=== PATIENT | male | born 1990 | race Caucasian/White ===

== ENCOUNTER 2023-01-16 13:46 | Emergency (ER) | payer OTHER, SELFPAY ==
--- NOTE | ~2023-01-16 | CT_ITS ---
EXAMINATION: CT FACIAL BONES WITHOUT CONTRAST CLINICAL INFORMATION: Status post fall with right eyebrow laceration, rule out facial bone abnormality. COMPARISON: None TECHNIQUE: Multiple axial images of the facial bones were obtained without the administration of intravenous contrast. Coronal and sagittal reformatted images were obtained. This CT examination was performed using dose optimization techniques as appropriate, variously including the following: *Automated exposure control *Adjustment of mA and/or kV according to patient size (this includes techniques or standardized protocols for targeted exams where dose is matched to indication/reason for exam; i.e. extremities or head) *Use of iterative reconstruction technique DLP: 291 mGy-cm FINDINGS: There is acute, comminuted depressed fracture involving the anterolateral cortical margin of the right frontal bone (image 195, series 2) extending posterior to the posterior cortical margin and inferior to the superior rim of the right orbits. Subjacent mild to moderate mucosal thickening and moderate air-fluid level are seen in the right maxillary sinus with extension inferiorly to the right anterior ethmoid air cells. The remainder of the ethmoid air cells as well as the sphenoid sinuses are clear. Minimal mucosal thickening is seen in the maxillary sinuses bilaterally without air-fluid levels. The right orbital contents are intact without abnormality. The right axilla, nasal bones and zygomatic arch are intact. No left facial bone fracture. The mandible and temporomandibular joints as well as the pterygoid plates are intact. The cervical spine shows mild degenerative disc disease at C5-6 with disc space narrowing and marginal osteophyte odontoid process is intact. The soft tissues show mild asymmetric swelling in the right cheek and periorbital region. CT/CT facial bones wo IV con IMPRESSION: 1. Acute, comminuted, depressed fracture involving the anterolateral cortical margin of the right frontal bone extending inferiorly to the superior orbital rim. Subjacent mild to moderate mucosal thickening and air-fluid level in the right maxillary sinus with extension inferiorly to the right anterior ethmoid air cells. No other acute osseous abnormality. 2. Mild asymmetric soft tissue swelling in the right cheek and periorbital region without underlying abnormality. 3. Mild C5-6 degenerative disc disease.
--- NOTE | ~2023-01-16 | CT_ITS ---
EXAMINATION: CT HEAD WITHOUT CONTRAST CLINICAL INFORMATION: Facial fracture. Pain. COMPARISON: None. TECHNIQUE: Contiguous axial imaging was performed from the skull base to vertex without intravenous administration of contrast. Coronal and sagittal reformatted images are performed at the CT scanner. [This CT examination was performed using dose optimization techniques as appropriate, variously including the following: *Automated exposure control *Adjustment of mA and/or kV according to patient size (this includes techniques or standardized protocols for targeted exams where dose is matched to indication/reason for exam; i.e. extremities or head) *Use of iterative reconstruction technique] DLP: 521 mGy-cm. FINDINGS: There is no evidence of acute intracranial hemorrhage or acute territorial infarction. No abnormal mass-effect or midline shift is seen. Dior to white matter differentiation is well preserved. No extra-axial fluid collections are identified. The ventricles are normal in size. There is no abnormal attenuation within the brain parenchyma. Redemonstration of the acute comminuted mildly displaced fracture of the right frontal bone involving the frontal sinus. Hemorrhagic fluid in the frontal sinus redemonstrated. The mastoid air cells and middle ear cavities are normally aerated. CT/CT head/brain wo IV con IMPRESSION: 1. No acute intracranial pathology. 2. Redemonstration of the acute comminuted mildly displaced fracture of the right frontal bone involving the frontal sinus.
[2023-01-16 14:15] VITALS: BP 110/73; PULSE 89; RESP 18; TEMP 36.8; O2SAT 97; BMI 23.0
--- NOTE | 2023-01-16 14:16 | ED.WOUNDLAC ---
HPI - Wound/Laceration General Chief Complaint: Wound/Laceration <GRECIA Dempsey Last Filed: 01/16/23 14:19> Stated Complaint: R eyebrow laceration <GRECIA Dempsey Last Filed: 01/16/23 14:19> Time Seen by Provider: 01/16/23 15:06 <GRECIA Dempsey Last Filed: 01/16/23 14:19> Source: patient <GRECIA Conklin Last Filed: 01/17/23 12:02> Mode of arrival: ambulatory <GRECIA Conklin Last Filed: 01/17/23 12:02> Limitations: no limitations <GRECIA Conklin Last Filed: 01/17/23 12:02> History of Present Illness HPI narrative: Patient is a 32 year old assigned male at with no reported medical history presenting to the emergency department today after a fall up stairs. Patient states that at 0100 this morning, after drinking some alcohol, he tripped up some stairs and hit the right side of his face against the stairs. Patient states that he did not have any loss of consciousness and instead he finished going up the stairs and took a nap. Patient states that he does not know when his last tetanus shot was. Patient denies any dizziness, lightheadedness, abdominal pain, nausea, vomiting, fever, chills, blurry vision, double vision, loss of vision, chest pain, difficulty breathing, shortness of breath, back pain, night sweats, pain with urination, increased urinary frequency, increased urinary urgency, blood in his urine or stool, syncope or a near syncopal episode, bowel incontinence, bladder incontinence, bowel retention, bladder retention, or any other complaints at this time. <GRECIA Conklin Last Filed: 01/17/23 12:02> Onset (ago): hour(s) (10) <GRECIA Conklin Last Filed: 01/17/23 12:02> Location: face <GRECIA Conklin Last Filed: 01/17/23 12:02> Related Data Allergies/Adverse Reactions: Allergies Allergy/AdvReac Type Severity Reaction Status Date / Time No Known Allergies Allergy Unverified 07/26/20 17:44 <GRECIA Dempsey Last Filed: 01/16/23 14:19> Review of Systems Constitutional: Constitutional: Reports no additional constitutional complaints, Denies chills, Denies fever(s) and Denies night sweats <GRECIA Conklin - Last Filed: 01/17/23 12:02> Eyes: Eyes: Reports no additional eye complaints, Denies blurry vision, Denies change in vision, Denies diplopia, Denies eye discharge, Denies loss of vision and Denies eye pain <GRECIA Conklin - Last Filed: 01/17/23 12:02> Comments: right eyebrow injury <GRECIA Conklin - Last Filed: 01/17/23 12:02> ENT: Denies dizziness <GRECIA Conklin - Last Filed: 01/17/23 12:02> Cardiovascular: Cardiovascular: Reports no additional cardiovascular complaints, Denies chest pain, Denies lightheadedness, Denies Loss of Consciousness and Denies dyspnea <GRECIA Conklin - Last Filed: 01/17/23 12:02> Respiratory: Respiratory: Reports no additional respiratory complaints and Denies dyspnea <GRECIA Conklin - Last Filed: 01/17/23 12:02> Gastrointestinal: Gastrointestinal: Reports no additional gastrointestinal complaints, Denies abdominal pain, Denies melena, Denies hematochezia, Denies change in bowel habits and Denies change in stool character <GRECIA Conklin - Last Filed: 01/17/23 12:02> Genitourinary: Genitourinary: Reports no additional male genitourinary complaints, Denies hematuria, Denies oliguria, Denies difficulty urinating, Denies dysuria, Denies urinary frequency, Denies urinary hesitancy, Denies urinary incontinence and Denies urinary urgency <GRECIA Conklin - Last Filed: 01/17/23 12:02> Musculoskeletal: Musculoskeletal: Reports no additional musculoskeletal complaints, Denies numbness and Denies tingling <GRECIA Conklin - Last Filed: 01/17/23 12:02> Neurologic: Denies dizziness, Denies loss of vision, Denies numbness and Denies tingling <GRECIA Conklin - Last Filed: 01/17/23 12:02> Psychiatric: Psychiatric: Reports no additional psychiatric complaints <GRECIA Conklin - Last Filed: 01/17/23 12:02> Endocrine: Endocrine: Reports no additional endocrine complaints <GRECIA Conklin - Last Filed: 01/17/23 12:02> Hematologic/Lymphatic: Hematologic/Lymphatic: Reports no additional hematologic/lymphatic complaints <GRECIA Conklin - Last Filed: 01/17/23 12:02> Allergic/Immunologic: Allergic/Immunologic: Reports no additional allergic/immunologic complaints <GRECIA Conklin - Last Filed: 01/17/23 12:02> [facility] Past Medical History Attestation statement: The following information was validated with the patient. <GRECIA Conklin - Last Filed: 01/17/23 12:02> Source: old records reviewed and nursing notes reviewed <GRECIA Conklin - Last Filed: 01/17/23 12:02> Social History Social History: Social History Advance Directives: No Advance Directives Information Provided: No <GRECIA Dempsey - Last Filed: 01/16/23 14:19> Physical Exam Vital Signs: Vital Signs: Last Vital Signs Temp 98.3 F 01/16/23 14:15 Pulse 89 01/16/23 14:15 Resp 18 01/16/23 14:15 BP 110/73 01/16/23 14:15 Pulse Ox 97 01/16/23 14:15 O2 Del Method 01/16/23 14:15 BMI result Body Mass Index 23.0 <GRECIA Dempsey - Last Filed: 01/16/23 14:19> Vital Signs: Last Vital Signs Temp 98.3 F 01/16/23 14:15 Pulse 89 01/16/23 14:15 Resp 18 01/16/23 14:15 BP 110/73 01/16/23 14:15 Pulse Ox 97 01/16/23 14:15 O2 Del Method 01/16/23 14:15 BMI result Body Mass Index 23.0 <GRECIA Conklin - Last Filed: 01/17/23 12:02> Const: General: cooperative, no acute distress, alert and awake <GRECIA Conklin - Last Filed: 01/17/23 12:02> Nutritional Appearance: well nourished <Maricel Newmancandie [place] - Last Filed: 01/17/23 12:02> Orientation/consciousness: patient oriented x3 <Maricel Matthew [place] - Last Filed: 01/17/23 12:02> Limitations: no limitations <Mariceljunior Newmancandie [place] - Last Filed: 01/17/23 12:02> HEENT: Other: right eyebrow laceration in U shape measuring approximately 6cm <Maricel Castro [place] - Last Filed: 01/17/23 12:02> Ears: hearing grossly normal bilaterally and external ears normal <Maricel Matthew [place] - Last Filed: 01/17/23 12:02> General nose exam: Normal external nose present, no nasal discharge noted and no epistaxis <Maricel Matthew [place] - Last Filed: 01/17/23 12:02> Face and sinus: Yes normal facial exam, No abrasion and No laceration <Maricel Castro [place] - Last Filed: 01/17/23 12:02> Mouth: Normal oral and palatal mucosa present, no drooling and no muffled voice <Maricel Matthew [place] - Last Filed: 01/17/23 12:02> Eyes: Eyelids: Yes eyelids normal <Maricel Matthew [place] - Last Filed: 01/17/23 12:02> Conjunctivae: conjunctivae normal <Maricel Newmancandie [place] - Last Filed: 01/17/23 12:02> Pupils: Equal, round and reactive pupils present <Maricel Castro [place] - Last Filed: 01/17/23 12:02> EOM: EOMs intact bilaterally <Maricel Castro [place] - Last Filed: 01/17/23 12:02> Neck: Neck: Yes normal visual inspection, Yes full ROM and Yes no lymphadenopathy <Maricel Castro [place] - Last Filed: 01/17/23 12:02> Chest: Chest palpation & inspection: normal inspection of the chest <Maricel Castro [place] - Last Filed: 01/17/23 12:02> Resp: Effort & Inspection: normal respiratory effort and able to speak in complete sentences <Maricel Castro [place] - Last Filed: 01/17/23 12:02> Auscultation: clear to auscultation bilaterally <Maricel Castro PA - Last Filed: 01/17/23 12:02> Cardio: Rate: regular rate <Maricel Castro PA - Last Filed: 01/17/23 12:02> Rhythm: regular rhythm <Maricel Castro PA - Last Filed: 01/17/23 12:02> GI: Inspection: Yes normal to inspection <Maricel Castro PA - Last Filed: 01/17/23 12:02> Palpation (GI): Soft to palpation, not firm, nontender, no guarding and not rigid <Maricel Castro PA - Last Filed: 01/17/23 12:02> Neuro: General: patient oriented x3 and moves all extremities <Maricel Castro PA - Last Filed: 01/17/23 12:02> Cranial nerves: Yes Equal, round and reactive pupils present <Maricel Castro PA - Last Filed: 01/17/23 12:02> Cognition (Neuro): normal cognition <Maricel Castro PA - Last Filed: 01/17/23 12:02> Motor exam (neuro): 5/5 motor strength present throughout <Maricel Castro PA - Last Filed: 01/17/23 12:02> Sensory Exam: Normal double simultaneous stimulation for sensation <Maricel Castro PA - Last Filed: 01/17/23 12:02> Coordination: [id number] test normal <Maricel Castro PA - Last Filed: 01/17/23 12:02> Extrem: General: Yes normal to inspection, Yes full ROM and Yes capillary refill normal <Maricel Castro PA - Last Filed: 01/17/23 12:02> Psych: Appearance: grossly normal <Maricel Castro PA - Last Filed: 01/17/23 12:02> Mental Status: mental status grossly normal <Maricel Castro PA - Last Filed: 01/17/23 12:02> Affect: normal affect <Maricel Castro PA - Last Filed: 01/17/23 12:02> Attitude: cooperative <Maricel Castro PA - Last Filed: 01/17/23 12:02> Thought process: Normal thought process present <MaricelGRECIA Power - Last Filed: 01/17/23 12:02> Thought content: Normal thought content present <GRECIA Conklin - Last Filed: 01/17/23 12:02> Insight: Good insight present (Psych) <GRECIA Conklin - Last Filed: 01/17/23 12:02> Course Course Course Narrative: RME - 32 year old male presenting today with complaints or right eyebrow laceration which occurred last night at midnight when he was drunk. Patient states that he accidentally missed a step at his house and fell forward, striking his forehead, lacerating his right eyebrow. He denies loss of consciousness. Admits to having a headache. Will get tetanus vaccination today. Deep irregular laceration right over the eyebrow. Plan - Will need sutures for closure. CT facial bone ordered. <GRECIA Dempsey - Last Filed: 01/16/23 14:19> Medications Administered Discontinued Medications Generic Name Dose Route Start Last Admin Trade Name Freq PRN Reason Stop Dose Admin Diphtheria/Tetanus/Acell Pertussis 0.5 ml 01/16/23 15:21 01/16/23 15:34 Diphth,Pertus(Acell),Tet Adult 0.5 Ml Syringe IM 01/16/23 15:22 0.5 ml .ONCE ONE Administration Piperacillin Sod/Tazobactam 50 mls @ 100 mls/hr 01/16/23 15:28 01/16/23 15:43 Sod 3.375 gm/ Sodium Chloride IV 01/16/23 15:57 100 mls/hr ONCE ONE Administration <GRECIA Dempsey - Last Filed: 01/16/23 14:19> Medications Administered Discontinued Medications Generic Name Dose Route Start Last Admin Trade Name Freq PRN Reason Stop Dose Admin Diphtheria/Tetanus/Acell Pertussis 0.5 ml 01/16/23 15:21 01/16/23 15:34 Diphth,Pertus(Acell),Tet Adult 0.5 Ml Syringe IM 01/16/23 15:22 0.5 ml .ONCE ONE Administration Piperacillin Sod/Tazobactam 50 mls @ 100 mls/hr 01/16/23 15:28 01/16/23 15:43 Sod 3.375 gm/ Sodium Chloride IV 01/16/23 15:57 100 mls/hr ONCE ONE Administration <GRECIA Conklin - Last Filed: 01/17/23 12:02> Medical Decision Making Medical Decision Making [facility] Narrative: Patient is a 32 year old assigned male at with no reported medical history presenting to the emergency department today with a right eyebrow injury. Patient's physical exam showed a large U shaped right eyebrow injury measuring approximately 6 cm. Patient's blood work showed an elevated WBC count of 12.2 but was otherwise unremarkable. Patient's facial and head CT showed an acute, comminuted, depressed fracture involving the anterolateral cortical margin of the right frontal bone extending inferiorly to the superior orbital rim. I spoke to [facility] trauma surgeon Dr. Elizabeth who agreed to accept the transfer of the patient for a trauma consult to the [facility] ER. I explained my physical exam findings as well as all test results to the patient. I answered all questions asked by the patient. Patient was brought up to date on tetanus and given an IV dose of Zosyn given his open fracture. Patient verbalized agreement and understanding with this treatment plan and transfer. <GRECIA Conklin - Last Filed: 01/17/23 12:02> Differential Diagnosis Differential Diagnoses: The differential diagnosis associated with the presentation includes <GRECIA Conklin - Last Filed: 01/17/23 12:02> skull fracture, facial fracture, orbital roof fracture <GRECIA Conklin - Last Filed: 01/17/23 12:02> Consult Healthcare Provider Management of the patient was discussed with: [employer] ([facility] trauma surgeon Dr. Elizabeth who agreed to accept the transfer of the patient for a trauma consult to the [facility] ER) <GRECIA Conklin - Last Filed: 01/17/23 12:02> Lab Data [facility] Lab Attestation statement: I reviewed the patient's lab results. <GRECAI Conklin - Last Filed: 01/17/23 12:02> Result Diagrams: 01/16/23 16:39 01/16/23 16:39 <GRECIA Dempsey - Last Filed: 01/16/23 14:19> Labs: Lab Results 01/16/23 01/16/23 01/16/23 Range/Units 16:39 16:39 16:39 WBC 12.2 H (4.8-10.8) X10*3/uL RBC 4.77 (4.60-5.80) X10*6/uL Hgb 15.8 (14.0-18.0) g/dl Hct 45.4 (42.0-52.0) % MCV 95.2 (80.0-98.0) fL MCH 33.1 H (27.0-33.0) pg MCHC 34.8 (31.0-36.0) g/dl RDW 11.7 (11.0-16.0) % Plt Count 312 (160-400) X10*3/uL MPV 8.5 L (9.4-12.4) fL Immature Gran % (Auto) 0.6 H (0.0-0.4) % Neut % (Auto) 80.8 H (45-73) % Lymph % (Auto) 11.4 L (20-40) % [place] % (Auto) 6.6 (2-11) % Eos % (Auto) 0.2 (0-4) % Baso % (Auto) 0.4 (0-2) % Lymph # (Auto) 1.4 (1.2-4.9) X10*3/uL [place] # (Auto) 0.8 (0.1-1.2) X10*3/uL Eos # (Auto) 0.0 (0.0-0.4) X10*3/uL Baso # (Auto) 0.1 (0.0-0.2) X10*3/uL Abs Immat Gran (auto) 0.07 H (0.00-0.03) X10*3/uL Absolute Neuts (auto) 9.9 H (2.0-8.3) x10*3/uL Absolute Nucleated RBC 0.000 (0.0-0.012) X10*3/uL Nucleated RBC % (auto) 0.0 (0.0-0.2) /100WBC PT 12.3 (10.0-13.1) SEC INR 1.1 (0.9-1.1) APTT 31.7 (26.0-36.4) SEC Sodium 145 (135-145) mmol/L Potassium 3.9 (3.3-5.1) mmol/L Chloride 108 (96-108) mmol/L Carbon Dioxide 27 (22-29) mmol/L Anion Gap 14 (12-20) BUN 5 L (9-16) mg/dL Creatinine 0.89 (0.5-1.4) mg/dL Estim Creat Clear Calc 127.3 Estimated GFR > 60 Random Glucose 80 (60-115) mg/dL Calcium 9.0 (8.4-10.2) mg/dL Total Bilirubin 0.6 (0.0-1.0) mg/dL AST 17 (5-37) U/L ALT 21 (0-40) U/L Alkaline Phosphatase 87 (39-117) U/L Total Protein 6.8 (6.5-8.0) g/dL Albumin 4.6 (3.5-5.0) g/dL COVID-19 (CECIL) (Negative) COVID-19 Clin Com 01/16/23 Range/Units 16:39 WBC (4.8-10.8) X10*3/uL RBC (4.60-5.80) X10*6/uL Hgb (14.0-18.0) g/dl Hct (42.0-52.0) % MCV (80.0-98.0) fL MCH (27.0-33.0) pg MCHC (31.0-36.0) g/dl RDW (11.0-16.0) % Plt Count (160-400) X10*3/uL MPV (9.4-12.4) fL Immature Gran % (Auto) (0.0-0.4) % Neut % (Auto) (45-73) % Lymph % (Auto) (20-40) % [place] % (Auto) (2-11) % Eos % (Auto) (0-4) % Baso % (Auto) (0-2) % Lymph # (Auto) (1.2-4.9) X10*3/uL [place] # (Auto) (0.1-1.2) X10*3/uL Eos # (Auto) (0.0-0.4) X10*3/uL Baso # (Auto) (0.0-0.2) X10*3/uL Abs Immat Gran (auto) (0.00-0.03) X10*3/uL Absolute Neuts (auto) (2.0-8.3) x10*3/uL Absolute Nucleated RBC (0.0-0.012) X10*3/uL Nucleated RBC % (auto) (0.0-0.2) /100WBC PT (10.0-13.1) SEC INR (0.9-1.1) APTT (26.0-36.4) SEC Sodium (135-145) mmol/L Potassium (3.3-5.1) mmol/L Chloride (96-108) mmol/L Carbon Dioxide (22-29) mmol/L Anion Gap (12-20) BUN (9-16) mg/dL Creatinine (0.5-1.4) mg/dL Estim Creat Clear Calc Estimated GFR Random Glucose (60-115) mg/dL Calcium (8.4-10.2) mg/dL Total Bilirubin (0.0-1.0) mg/dL AST (5-37) U/L ALT (0-40) U/L Alkaline Phosphatase (39-117) U/L Total Protein (6.5-8.0) g/dL Albumin (3.5-5.0) g/dL COVID-19 (CECIL) Negative (Negative) COVID-19 Clin Com See Note <GRECIA Dempsey - Last Filed: 01/16/23 14:19> Lab Results 01/16/23 01/16/23 01/16/23 Range/Units 16:39 16:39 16:39 WBC 12.2 H (4.8-10.8) X10*3/uL RBC 4.77 (4.60-5.80) X10*6/uL Hgb 15.8 (14.0-18.0) g/dl Hct 45.4 (42.0-52.0) % MCV 95.2 (80.0-98.0) fL MCH 33.1 H (27.0-33.0) pg MCHC 34.8 (31.0-36.0) g/dl RDW 11.7 (11.0-16.0) % Plt Count 312 (160-400) X10*3/uL MPV 8.5 L (9.4-12.4) fL Immature Gran % (Auto) 0.6 H (0.0-0.4) % Neut % (Auto) 80.8 H (45-73) % Lymph % (Auto) 11.4 L (20-40) % [place] % (Auto) 6.6 (2-11) % Eos % (Auto) 0.2 (0-4) % Baso % (Auto) 0.4 (0-2) % Lymph # (Auto) 1.4 (1.2-4.9) X10*3/uL [place] # (Auto) 0.8 (0.1-1.2) X10*3/uL Eos # (Auto) 0.0 (0.0-0.4) X10*3/uL Baso # (Auto) 0.1 (0.0-0.2) X10*3/uL Abs Immat Gran (auto) 0.07 H (0.00-0.03) X10*3/uL Absolute Neuts (auto) 9.9 H (2.0-8.3) x10*3/uL Absolute Nucleated RBC 0.000 (0.0-0.012) X10*3/uL Nucleated RBC % (auto) 0.0 (0.0-0.2) /100WBC PT 12.3 (10.0-13.1) SEC INR 1.1 (0.9-1.1) APTT 31.7 (26.0-36.4) SEC Sodium 145 (135-145) mmol/L Potassium 3.9 (3.3-5.1) mmol/L Chloride 108 (96-108) mmol/L Carbon Dioxide 27 (22-29) mmol/L Anion Gap 14 (12-20) BUN 5 L (9-16) mg/dL Creatinine 0.89 (0.5-1.4) mg/dL Estim Creat Clear Calc 127.3 Estimated GFR > 60 Random Glucose 80 (60-115) mg/dL Calcium 9.0 (8.4-10.2) mg/dL Total Bilirubin 0.6 (0.0-1.0) mg/dL AST 17 (5-37) U/L ALT 21 (0-40) U/L Alkaline Phosphatase 87 (39-117) U/L Total Protein 6.8 (6.5-8.0) g/dL Albumin 4.6 (3.5-5.0) g/dL COVID-19 (CECIL) (Negative) COVID-19 Clin Com 01/16/23 Range/Units 16:39 WBC (4.8-10.8) X10*3/uL RBC (4.60-5.80) X10*6/uL Hgb (14.0-18.0) g/dl Hct (42.0-52.0) % MCV (80.0-98.0) fL MCH (27.0-33.0) pg MCHC (31.0-36.0) g/dl RDW (11.0-16.0) % Plt Count (160-400) X10*3/uL MPV (9.4-12.4) fL Immature Gran % (Auto) (0.0-0.4) % Neut % (Auto) (45-73) % Lymph % (Auto) (20-40) % [place] % (Auto) (2-11) % Eos % (Auto) (0-4) % Baso % (Auto) (0-2) % Lymph # (Auto) (1.2-4.9) X10*3/uL [place] # (Auto) (0.1-1.2) X10*3/uL Eos # (Auto) (0.0-0.4) X10*3/uL Baso # (Auto) (0.0-0.2) X10*3/uL Abs Immat Gran (auto) (0.00-0.03) X10*3/uL Absolute Neuts (auto) (2.0-8.3) x10*3/uL Absolute Nucleated RBC (0.0-0.012) X10*3/uL Nucleated RBC % (auto) (0.0-0.2) /100WBC PT (10.0-13.1) SEC INR (0.9-1.1) APTT (26.0-36.4) SEC Sodium (135-145) mmol/L Potassium (3.3-5.1) mmol/L Chloride (96-108) mmol/L Carbon Dioxide (22-29) mmol/L Anion Gap (12-20) BUN (9-16) mg/dL Creatinine (0.5-1.4) mg/dL Estim Creat Clear Calc Estimated GFR Random Glucose (60-115) mg/dL Calcium (8.4-10.2) mg/dL Total Bilirubin (0.0-1.0) mg/dL AST (5-37) U/L ALT (0-40) U/L Alkaline Phosphatase (39-117) U/L Total Protein (6.5-8.0) g/dL Albumin (3.5-5.0) g/dL COVID-19 (CECIL) Negative (Negative) COVID-19 Clin Com See Note <GRECIA Conklin - Last Filed: 01/17/23 12:02> Independent Interpretation I performed an independent interpretation of an: CT Scan <GRECIA Conklin - [place] Filed: 01/17/23 12:02> Interpretation: My interpretation is in agreement with the radiologist's impression of these imaging studies. EXAMINATION: CT FACIAL BONES WITHOUT CONTRAST CLINICAL INFORMATION: Status post fall with right eyebrow laceration, rule out facial bone abnormality.? COMPARISON: None? TECHNIQUE: Multiple axial images of the facial bones were obtained without the administration of intravenous contrast. Coronal and sagittal reformatted images were obtained. This CT examination was performed using dose optimization techniques as appropriate, variously including the following: *Automated exposure control *Adjustment of mA and/or kV according to patient size (this includes techniques or standardized protocols for targeted exams where dose is matched to indication/reason for exam; i.e. extremities or head) *Use of iterative reconstruction technique DLP: 291 mGy-cm FINDINGS: There is acute, comminuted depressed fracture involving the anterolateral cortical margin of the right frontal bone (image 195, series 2) extending posterior to the posterior cortical margin and inferior to the superior rim of the right orbits. Subjacent mild to moderate mucosal thickening and moderate air-fluid level are seen in the right maxillary sinus with extension inferiorly to the right anterior ethmoid air cells. The remainder of the ethmoid air cells as well as the sphenoid sinuses are clear. Minimal mucosal thickening is seen in the maxillary sinuses bilaterally without air-fluid levels. The right orbital contents are intact without abnormality. The right axilla, nasal bones and zygomatic arch are intact. No left facial bone fracture. The mandible and temporomandibular joints as well as the pterygoid plates are intact. The cervical spine shows mild degenerative disc disease at C5-6 with disc space narrowing and marginal osteophyte odontoid process is intact. The soft tissues show mild asymmetric swelling in the right cheek and periorbital region. CT/CT facial bones wo IV con IMPRESSION: 1.? Acute, comminuted, depressed fracture involving the anterolateral cortical margin of the right frontal bone extending inferiorly to the superior orbital rim. Subjacent mild to moderate mucosal thickening and air-fluid level in the right maxillary sinus with extension inferiorly to the right anterior ethmoid air cells. No other acute osseous abnormality. 2.? Mild asymmetric soft tissue swelling in the right cheek and periorbital region without underlying abnormality. 3.? Mild C5-6 degenerative disc disease. Dictated By: Brian Delgado MD Signed By: Electronically signed by Brian Delgado MD 01/16/23 1595 EXAMINATION: CT HEAD WITHOUT CONTRAST CLINICAL INFORMATION: Facial fracture. Pain. COMPARISON: None. TECHNIQUE: Contiguous axial imaging was performed from the skull base to vertex without intravenous administration of contrast. Coronal and sagittal reformatted images are performed at the CT scanner. [This CT examination was performed using dose optimization techniques as appropriate, variously including the following: *Automated exposure control *Adjustment of mA and/or kV according to patient size (this includes techniques or standardized protocols for targeted exams where dose is matched to indication/reason for exam; i.e. extremities or head) *Use of iterative reconstruction technique] DLP: 521 mGy-cm. FINDINGS: There is no evidence of acute intracranial hemorrhage or acute territorial infarction. No abnormal mass-effect or midline shift is seen. Dior to white matter differentiation is well preserved. No extra-axial fluid collections are identified. The ventricles are normal in size. There is no abnormal attenuation within the brain parenchyma. Redemonstration of the acute comminuted mildly displaced fracture of the right frontal bone involving the frontal sinus. Hemorrhagic fluid in the frontal sinus redemonstrated. The mastoid air cells and middle ear cavities are normally aerated. CT/CT head/brain wo IV con IMPRESSION: 1.? No acute intracranial pathology. 2.? Redemonstration of the acute comminuted mildly displaced fracture of the right frontal bone involving the frontal sinus. Dictated By: Endy Singer MD Signed By: Electronically signed by Endy Singer MD 01/16/23 [id number] <GRECIA Conklin - Last Filed: 01/17/23 12:02> Critical Care Time Critical Care Time Critical Care Time: Yes <GRECIA Conklin - Last Filed: 01/17/23 12:02> Total Critical Care Time: 45 <GRECIA Conklin - Last Filed: 01/17/23 12:02> Attestation: I spent 45 minutes of Critical Care Time with this patient. This does not include time spent on separately reported billable procedures. <GRECIA Conklin - Last Filed: 01/17/23 12:02> Discharge Plan Discharge Clinical Impression: Fracture of frontal bone <GRECIA Dempsey - Last Filed: 01/16/23 14:19> Patient Disposition: [facility] <GRECIA Dempsey Last Filed: 01/16/23 14:19> Transfer Details: [facility] for Trauma consult <GRECIA Dempsey - Last Filed: 01/16/23 14:19> [facility] for Trauma consult <GRECIA Conklin - Last Filed: 01/17/23 12:02> Interventions: Acute Care Transfer Worksheet (ED) Last Done: 01/16/23 17:37 <GRECIA Dempsey - Last Filed: 01/16/23 14:19> Discharge Date/Time: 01/16/23 17:38 <GRECIA Dempsey - Last Filed: 01/16/23 14:19>
[2023-01-16] MEDS: Diphth,Pertus(ACell),Tet Adult 0.5 ML SYRINGE IM (15:34)
[2023-01-16] MEDS: Piperacillin Sodium/Tazobactam 3.375 GM in 0.9 % Sodium Chloride 50 ML IV (15:43)
[2023-01-16 16:49] LABS: MANUAL DIFF FLAG NO
[2023-01-16 16:52] LABS: Basophils Absolute Auto 0.1 X10*3/uL (0.0-0.2); Basophils Percent Auto 0.4 % (0-2); Eosinophils Percent Auto 0.2 % (0-4); Hematocrit 45.4 % (42.0-52.0); Hemoglobin 15.8 g/dl (14.0-18.0); Imm Gran Abs Auto 0.07 X10*3/uL (0.00-0.03); Imm Gran Pct Auto 0.6 % (0.0-0.4); Lymphocytes Absolute Auto 1.4 X10*3/uL (1.2-4.9); Lymphocytes Percent Auto 11.4 % (20-40); Mean Corpuscular HGB Conc 34.8 g/dl (31.0-36.0); Mean Corpuscular Hemoglobin 33.1 pg (27.0-33.0); Mean Corpuscular Volume 95.2 fL (80.0-98.0); Mean Platelet Volume 8.5 fL (9.4-12.4); Monocytes Absolute Auto 0.8 X10*3/uL (0.1-1.2); Monocytes Percent Auto 6.6 % (2-11); Neutrophils Absolute Auto 9.9 x10*3/uL (2.0-8.3); Neutrophils Percent Auto 80.8 % (45-73); Platelet Count 312 X10*3/uL (160-400); Red Blood Count 4.77 X10*6/uL (4.60-5.80); Red Cell Distribution Width 11.7 % (11.0-16.0); White Blood Count 12.2 X10*3/uL (4.8-10.8)
[2023-01-16 16:57] LABS: INTERNATIONAL NORM RATIO 1.1 (0.9-1.1); Prothrombin Time 12.3 SEC (10.0-13.1)
[2023-01-16 16:59] LABS: Partial Thromboplastin Time 31.7 SEC (26.0-36.4)
[2023-01-16 17:09] LABS: COVID-19 Test Negative (Negative); IDNOW Serial# 16C4AD1C
[2023-01-16 17:11] LABS: Alanine Aminotransferase 21 U/L (0-40); Albumin Level 4.6 g/dL (3.5-5.0); Alkaline Phosphatase 87 U/L (39-117); Anion Gap 14 (12-20); Aspartate Amino Transferase 17 U/L (5-37); Bilirubin Total 0.6 mg/dL (0.0-1.0); Blood Urea Nitrogen 5 mg/dL (9-16); Carbon Dioxide 27 mmol/L (22-29); Chloride 108 mmol/L (96-108); Creatinine Clr Calc Pharmacy 127.3; Estimated Glomerular Filt Rate > 60; Glucose Random 80 mg/dL (60-115); Potassium 3.9 mmol/L (3.3-5.1); Sodium 145 mmol/L (135-145); Total Protein 6.8 g/dL (6.5-8.0)
== END 2023-01-16 17:38 | disposition short-term general hospital (02) ==
PROVIDERS: Physician Assistant Medical; Emergency Provider Emergency Medicine; PCP Internal Medicine
DX: S02.0XXA Fracture of vault of skull, initial encounter for closed fracture (principal); S01.111A Laceration without foreign body of right eyelid and periocular area, initial encounter; W10.2XXA Fall (on)(from) incline, initial encounter; Y93.9 Activity, unspecified; Y92.9 Unspecified place or not applicable; Y99.9 Unspecified external cause status; Z20.822 Contact with and (suspected) exposure to COVID-19; Z23 Encounter for immunization
CPT/HCPCS: 36415; 70450; 70486; 80053; 85025; 85610; 85730; 87635; 90471; 90715; 96374; 99285; J2543

== ENCOUNTER 2023-01-30 16:34 | Emergency (ER) | payer OTHER, SELFPAY ==
[2023-01-30 17:32] VITALS: BP 142/81; PULSE 68; RESP 14; TEMP 35.9; O2SAT 98; BMI 22.1
[2023-01-30 17:43] VITALS: BP 135/86; PULSE 70; RESP 16; TEMP 37; O2SAT 98
--- NOTE | 2023-01-30 17:58 | ED.WOUNDLAC ---
HPI - Wound/Laceration General Chief Complaint: Wound/Laceration Stated Complaint: suture removal Time Seen by Provider: 01/30/23 17:45 Source: patient Mode of arrival: ambulatory Limitations: no limitations History of Present Illness HPI narrative: 32 yo M presents today for suture removal. Pt was seen here on 01/16 for a right eyelid and eyebrow laceration, but was transferred to [facility] [place] after a frontal bone fracture was found. Pt states he had 12 sutures placed. He had tolerated sutures well without any fevers, chills or drainage. He has not followed up with maxillofacial surgeon yet as they have not returned his call. Onset (ago): week(s) Location: face Associated symptoms: none Related Data Allergies Allergy/AdvReac Type Severity Reaction Status Date / Time No Known Allergies Allergy Unverified 07/26/20 17:44 Review of Systems Review of Systems: Yes all other systems are reviewed and are negative Constitutional: Constitutional: Reports no additional constitutional complaints, Denies body ache(s), Denies chills, Denies fever(s), Denies headache(s) and Denies weakness Eyes: Eyes: Reports no additional eye complaints and Denies change in vision ENT: Reports system reviewed and no additional complaints, except as documented, Denies dizziness, Denies headache(s), Denies nasal congestion, Denies nasal discharge and Denies neck pain Cardiovascular: Cardiovascular: Reports no additional cardiovascular complaints, Denies chest pain, Denies leg edema and Denies dyspnea Respiratory: Respiratory: Reports no additional respiratory complaints, Denies cough and Denies dyspnea Gastrointestinal: Gastrointestinal: Reports no additional gastrointestinal complaints, Denies abdominal pain, Denies diarrhea, Denies nausea and Denies vomiting Genitourinary: Genitourinary: Denies urinary incontinence Musculoskeletal: Musculoskeletal: Reports no additional musculoskeletal complaints, Denies back pain, Denies arthralgias, Denies joint swelling, Denies neck pain, Denies numbness and Denies tingling Integumentary/Breasts: Skin/Breast: Reports system reviewed and no additional complaints, except as docu and Denies rash Neurologic: Reports system reviewed and no additional complaints, except as documented, Denies Abnormal speech present, Denies dizziness, Denies headache(s), Denies numbness, Denies tingling and Denies weakness [facility] Past Medical History Attestation statement: The following information was validated with the patient. Social History Social History Advance Directives: No Advance Directives Information Provided: No Physical Exam Vital Signs: Vital Signs: Last Vital Signs Temp 98.6 F 01/30/23 17:43 Pulse 70 01/30/23 17:43 Resp 16 01/30/23 17:43 BP 135/86 01/30/23 17:43 Pulse Ox 98 01/30/23 17:43 O2 Del Method Room Air 01/30/23 17:43 BMI result Body Mass Index 22.1 Const: General: cooperative, healthy appearing, comfortable and no acute distress Orientation/consciousness: patient oriented x3 Limitations: no limitations HEENT: Head: Yes normal to inspection Ears: hearing grossly normal bilaterally General nose exam: Normal external nose present Face and sinus: Yes normal facial exam Mouth: Normal oral and palatal mucosa present Throat: Yes posterior oropharynx normal Eyes: General: appearance normal, both eyes and all related structures Pupils: Equal, round and reactive pupils present Neck: Neck: Yes normal visual inspection Chest: Chest palpation & inspection: normal inspection of the chest Resp: Effort & Inspection: normal respiratory effort Auscultation: clear to auscultation bilaterally Cardio: Rate: regular rate Rhythm: regular rhythm Peripheral pulses: Peripheral pulses 2+ throughout GI: Inspection: Yes normal to inspection Palpation (GI): Soft to palpation and nontender Auscultation: normal bowel sounds Back/Spine/Pelvis: Thoracic/Lumbar Spine: thoracic and lumbar spine normal to inspection Skin: Other: Right eyelid with well healed, well approximated 2cm wound with sutures in place. Right eyebrow with approximately 3cm well approximated, well healed laceration with sutures placed. with no surrounding erythema, edema, warmth. General skin exam: no rashes or lesions noted Neuro: General: patient oriented x3, no focal motor deficits and normal sensation to monofilament Cranial nerves: Yes Equal, round and reactive pupils present Cognition (Neuro): normal cognition Speech: No Abnormal speech present Gait exam (Neuro): Normal gait present Motor exam (neuro): 5/5 motor strength present throughout Extrem: General: Yes normal to inspection Medical Decision Making Medical Decision Making MDM Narrative: 32 yo M presents for suture removal. Sutures removed, see procedure note. Patient encouraged to f/u with maxillofacial surgeon to ensure good bone healing. Pt understands and agrees with plan. Stable for discharge. Differential Diagnosis Differential Diagnoses: The differential diagnosis associated with the presentation includes suture removal, wound check, cellulitis, wound dehiscence Procedures Procedure Narrative Procedure Narrative: 12 sutures removed from right periorbital area with no complications. patient tolerated well Discharge Plan Discharge Clinical Impression: Visit for suture removal Patient Disposition: Home, Self-Care Instructions: Stitches Removal (ED) Interventions: ED Discharge Assessment Last Done: 01/30/23 18:21 Discharge Date/Time: 01/30/23 18:21
--- NOTE | 2023-01-30 18:20 | PC.NURSE ---
Discharge instructions reviewed with pt. Pt verbalizes understanding.
== END 2023-01-30 18:21 | disposition home or self-care (01) ==
PROVIDERS: Emergency Provider Emergency Medicine
DX: Z48.02 Encounter for removal of sutures (principal)
CPT/HCPCS: 99282; 99283